=== PATIENT | male | born 2000 | race African-American/Black ===

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

== ENCOUNTER 2022-10-30 15:35 | Emergency (ER) | payer OTHER ==
[~2022-10-30] VITALS: Ht 172.7 cm; Wt 72.6 kg
[2022-10-30 15:41] VITALS: BP 133/69
--- NOTE | 2022-10-30 16:00 | NUR ---
SEEN AND EXAMINED BY DR ALVES, MEDICALLY CLEARED FOR BOOKING. D/C TO LAW ENFORCEMENT IN [facility].
== END 2022-10-30 16:03 ==
LOC: ER 15:35
DX: Y08.89XA Assault by other specified means, initial encounter; Y93.89 Activity, other specified; Y92.89 Other specified places as the place of occurrence of the external cause; Y99.8 Other external cause status